=== PATIENT | male | born 1930 | race Caucasian/White ===

== ENCOUNTER 2017-04-12 15:42 | Outpatient (CLI) | payer MEDICARE, OTHER ==
[2017-04-12 15:50] LABS: Bilirubin Negative (Negative); Blood, Urine Small (Negative); Glucose, Urine (Dipstick) Negative (Negative); Leukocyte Large (Negative); Nitrite Negative (Negative); Protein, Urine (Dipstick) 100 mg/dL (Neg-Trace)
[2017-04-12 16:07] LABS: Clarity Cloudy (Clear)
[2017-04-12 16:08] LABS: Bacteria/HPF 3+ HPF (None Seen); Other Microscopic Description C&S SET UP; Squamous Epithelial 0-3 HPF (0-3)
== END 2017-04-12 15:43 | disposition home or self-care (01) ==
LOC: BURLABSP 15:42
PROVIDERS: ATTEND Clinical Nurse Specialist Medical-Surgical
DX: N39.0 Urinary tract infection, site not specified (principal)
CPT/HCPCS: 81001; 87077; 87086